=== PATIENT | female | born 1930 | race Two or more races ===

== ENCOUNTER 2017-08-23 20:55 | Inpatient (IN) | payer MEDICARE, MEDICAID ==
[~2017-08-23] VITALS: Ht 162.6 cm; Wt 75.3 kg
[2017-08-23] MEDS ORDERED: KETOROLAC 30MG/ML VIAL IV STA (21:15)
[2017-08-23 22:54] LABS: BG BASE EXCESS -7.9 mmol/L (-2.0-2.0); BG CARBOXYHEMOGLOBIN 0.3 % (0.5-1.5); BG DEOXYHEMOGLOBIN 0.4 % (0.0-5.0); BG FRACTION INSPIRED OXYGEN 100; BG HCO3 ACT 17.6 mmol/L (22.0-26.0); BG METHEMOGLOBIN 0.2 % (0.0-1.5); BG OXYHEMOGLOBIN 99.1 % (94.0-97.0); BG PH 7.306 (7.350-7.450); BG PO2 245.8 mmHg (75.0-100.0); BG SAMPLE SITE RIGHT BRACHIAL; BG TOTAL HEMOGLOBIN 13.3 g/dL (12.0-18.0); BG VENT MODE MASK - NRB
[2017-08-23 22:57] LABS: INR 1.1; PROTHROMBIN TIME 11.9 sec (9.4-11.6)
[2017-08-23 22:58] LABS: CHLORIDE 102 mEq/L (98-107)
[2017-08-23 22:59] LABS: BASOPHILS % 0.3 % (0.0-2.0); EOSINOPHILS % 0.7 % (0.0-5.0); HEMATOCRIT. 37.3 % (36.0-48.0); HEMOGLOBIN. 12.8 g/dL (12.0-16.0); LYMPHOCYTES % 39.1 % (20.0-50.0); MEAN CORPUSCULAR HEMOGLOBIN 32.8 pg (28.0-32.0); MEAN CORPUSCULAR VOLUME 95.4 fL (81.0-99.0); MEAN PLATELET VOLUME 8.4 fl (7.4-10.4); MONOCYTES % 6.9 % (2.0-8.0); PLATELET 146 x1000/uL (130-400); RED BLOOD CELL COUNT 3.91 mill/uL (4.2-5.4); RED CELL DISTRIBUTION WIDTH 15.3 % (11.6-14.6)
[2017-08-23 23:35] LABS: CLARITY URINE CLOUDY (CLEAR); COLOR URINE YELLOW (YELLOW); KETONES URINE NEGATIVE (NEGATIVE); LEUKOCYTE ESTERASE URINE NEGATIVE (NEGATIVE); NITRITE URINE NEGATIVE (NEGATIVE); OCCULT BLOOD URINE TRACE (NEGATIVE); PROTEIN URINE 1+ (NEGATIVE); SPECIFIC GRAVITY URINE 1.014 (1.005-1.030)
[2017-08-23] MEDS ORDERED: ASPIRIN 325MG EC TABLET PO ONE (23:45)
[2017-08-23] MEDS ORDERED: ENOXAPARIN 60MG/0.6ML SYR SUBCUT ONE (23:45)
[2017-08-24] MEDS ORDERED: HALOPERIDOL LACTATE 5MG/ML VIAL IM ONE
[2017-08-24] MEDS ORDERED: CLONIDINE 0.3MG TABLET PO NR (09:22)
[2017-08-24] MEDS ORDERED: CLONIDINE 0.1MG TABLET PO PRN (10:15)
[2017-08-24] MEDS ORDERED: DIPHENHYDRAMINE 50MG/ML VIAL IV PRN (10:15)
[2017-08-24] MEDS ORDERED: ONDANSETRON HCL 4MG/2ML VIAL IV PRN (10:15)
[2017-08-24] MEDS ORDERED: HYDROCODONE/ACETAMINOPHEN 5/325MG TABLET PO PRN (10:15)
[2017-08-24] MEDS ORDERED: IPRATROPIUM/ALBUTEROL 0.5-3(2.5)MG/3ML NEB INH PRN (10:15)
[2017-08-24] MEDS ORDERED: DOCUSATE SODIUM 100MG CAPSULE PO PRN (10:15)
[2017-08-24] MEDS ORDERED: NA PHOS,M-B/NA PHOS,DI-BA ENEMA 118ML PR PRN (10:15)
[2017-08-24] MEDS ORDERED: MAGNESIUM/ALUMINUM HYDROXIDE/SIMETHICONE 30ML UDC PO PRN (10:15)
[2017-08-24] MEDS ORDERED: HYDROMORPHONE HCL/PF 2MG/ML CPJ IV PRN (18:00)
[2017-08-24] MEDS: LORAZEPAM 2MG/ML CPJ IV PRN (20:32)
[2017-08-24 22:30] VITALS: BP_SYST 127; BP_SYST 97; BP_DIAS 59; BP_DIAS 75
[2017-08-25] VITALS (12 sets, daily range): BP systolic 90–190; BP diastolic 42–91
[2017-08-25] MEDS: LORAZEPAM 2MG/ML CPJ IV PRN (00:49)
[2017-08-25 07:25] LABS: BASOPHILS % 0.5 % (0.0-2.0); HEMATOCRIT. 34.3 % (36.0-48.0); HEMOGLOBIN. 11.6 g/dL (12.0-16.0); LYMPHOCYTES % 31.3 % (20.0-50.0); MEAN CORPUSCULAR HEMOGLOBIN 32.2 pg (28.0-32.0); MEAN CORPUSCULAR VOLUME 94.9 fL (81.0-99.0); MEAN PLATELET VOLUME 9.2 fl (7.4-10.4); MONOCYTES % 7.7 % (2.0-8.0); NEUTROPHILS % 59.5 % (40.0-76.0); PLATELET 126 x1000/uL (130-400); RED BLOOD CELL COUNT 3.61 mill/uL (4.2-5.4); RED CELL DISTRIBUTION WIDTH 15.2 % (11.6-14.6)
[2017-08-25] MEDS ORDERED: OMEP20CA10 MT (07:35)
[2017-08-25] MEDS ORDERED: METO25TA6 MT (07:35)
[2017-08-25] MEDS ORDERED: QUET50TA MT (07:35)
[2017-08-25] MEDS ORDERED: DOCU-138 PO (07:35)
[2017-08-25] MEDS ORDERED: LEVO25TA7 PO (07:35)
[2017-08-25] MEDS ORDERED: ASPI-1158 MT (07:35)
[2017-08-25] MEDS ORDERED: MEMA1CAP MT (07:35)
[2017-08-25 08:07] LABS: CHLORIDE 107 mEq/L (98-107)
[2017-08-25 08:14] LABS: LDL CHOLESTEROL 68 mg/dL (5-100)
[2017-08-25 08:15] LABS: HDL CHOLESTEROL 46 mg/dL (40-59)
[2017-08-25 08:16] LABS: T4 FREE 1.27 ng/dL (0.76-1.46)
[2017-08-25] MEDS: ENOXAPARIN 40MG/0.4ML SYR SUBCUT SCH (09:01)
[2017-08-25] MEDS: ASPIRIN 81MG EC TABLET PO SCH (09:01)
[2017-08-25] MEDS ORDERED: MEMANTINE HCL MT SCH (11:45)
[2017-08-25] MEDS: DOCUSATE SODIUM 250MG CAPSULE PO SCH (12:00)
[2017-08-25] MEDS: METOPROLOL TARTRATE 25MG TABLET PO SCH ×2 (12:00→21:00)
[2017-08-25] MEDS: OMEPRAZOLE 20MG CAPSULE EXTENDED RELEASE PO SCH (12:00)
[2017-08-25] MEDS: LEVOTHYROXINE SODIUM 50MCG TABLET PO SCH (12:00)
[2017-08-25] MEDS ORDERED: FUROSEMIDE 40MG/4ML VIAL IVP SCH (12:45)
[2017-08-25] MEDS: MEMANTINE HCL 10MG TABLET PO SCH (14:00)
[2017-08-25 15:44] LABS: BG BASE EXCESS -2.9 mmol/L (-2.0-2.0); BG CARBOXYHEMOGLOBIN 0.8 % (0.5-1.5); BG DEOXYHEMOGLOBIN 7.4 % (0.0-5.0); BG FRACTION INSPIRED OXYGEN 28; BG HCO3 ACT 22.3 mmol/L (22.0-26.0); BG METHEMOGLOBIN 0.1 % (0.0-1.5); BG OXYHEMOGLOBIN 91.7 % (94.0-97.0); BG PCO2 40.3 mmHg (35.0-45.0); BG PO2 64.5 mmHg (75.0-100.0); BG SAMPLE SITE RIGHT RADIAL; BG TOTAL HEMOGLOBIN 13.6 g/dL (12.0-18.0); BG VENT MODE NASAL CANNULA
[2017-08-25 17:44] LABS: BG BASE EXCESS -5.2 mmol/L (-2.0-2.0); BG CARBOXYHEMOGLOBIN 0.4 % (0.5-1.5); BG DEOXYHEMOGLOBIN 0.3 % (0.0-5.0); BG FRACTION INSPIRED OXYGEN 100; BG HCO3 ACT 19.8 mmol/L (22.0-26.0); BG METHEMOGLOBIN 0.3 % (0.0-1.5); BG OXYGEN SATURATION 99.7 % (92.0-98.5); BG PCO2 36.7 mmHg (35.0-45.0); BG PH 7.349 (7.350-7.450); BG PO2 331.6 mmHg (75.0-100.0); BG SAMPLE SITE RIGHT RADIAL; BG TOTAL HEMOGLOBIN 13.1 g/dL (12.0-18.0); BG VENT MODE MASK - NRB
[2017-08-25] MEDS: PIPERACILLIN/TAZ 3.375G PREMIX 50 ML IV SCH (18:39)
[2017-08-25] MEDS: QUETIAPINE FUMARATE 50MG TABLET PO SCH (21:00)
[2017-08-26] VITALS (12 sets, daily range): BP systolic 96–144; BP diastolic 41–85
[2017-08-26] MEDS: PIPERACILLIN/TAZ 3.375G PREMIX 50 ML IV SCH (01:14)
[2017-08-26 06:45] LABS: BASOPHILS % 0.1 % (0.0-2.0); HEMATOCRIT. 34.4 % (36.0-48.0); HEMOGLOBIN. 11.5 g/dL (12.0-16.0); LYMPHOCYTES % 10.5 % (20.0-50.0); MEAN CORPUSCULAR HEMOGLOBIN 32.1 pg (28.0-32.0); MEAN CORPUSCULAR VOLUME 95.9 fL (81.0-99.0); MEAN PLATELET VOLUME 9.5 fl (7.4-10.4); MONOCYTES % 4.7 % (2.0-8.0); NEUTROPHILS % 84.7 % (40.0-76.0); PLATELET 109 x1000/uL (130-400); RED BLOOD CELL COUNT 3.59 mill/uL (4.2-5.4); RED CELL DISTRIBUTION WIDTH 15.4 % (11.6-14.6)
[2017-08-26] MEDS: ENOXAPARIN 40MG/0.4ML SYR SUBCUT SCH (08:43)
[2017-08-26] MEDS: DOCUSATE SODIUM 250MG CAPSULE PO SCH (08:44)
[2017-08-26] MEDS: LEVOTHYROXINE SODIUM 50MCG TABLET PO SCH (08:44)
[2017-08-26] MEDS: MEMANTINE HCL 10MG TABLET PO SCH (08:44)
[2017-08-26] MEDS: OMEPRAZOLE 20MG CAPSULE EXTENDED RELEASE PO SCH (08:44)
[2017-08-26] MEDS: ASPIRIN 81MG EC TABLET PO SCH (08:45)
[2017-08-26] MEDS: METOPROLOL TARTRATE 25MG TABLET PO SCH ×2 (08:45→20:47)
[2017-08-26] MEDS: PIPERACILLIN/TAZOBACTAM 2.25 G in DEXTROSE 5% WATER 50 ML IV SCH ×2 (09:28→17:29)
[2017-08-26 09:31] LABS: BG BASE EXCESS -3.9 mmol/L (-2.0-2.0); BG CARBOXYHEMOGLOBIN 0.5 % (0.5-1.5); BG DEOXYHEMOGLOBIN 4.6 % (0.0-5.0); BG FRACTION INSPIRED OXYGEN 28; BG HCO3 ACT 20.1 mmol/L (22.0-26.0); BG METHEMOGLOBIN 0.2 % (0.0-1.5); BG OXYGEN SATURATION 95.4 % (92.0-98.5); BG OXYHEMOGLOBIN 94.7 % (94.0-97.0); BG PCO2 33.2 mmHg (35.0-45.0); BG PH 7.399 (7.350-7.450); BG PO2 74.8 mmHg (75.0-100.0); BG SAMPLE SITE RIGHT RADIAL; BG TOTAL HEMOGLOBIN 12.3 g/dL (12.0-18.0); BG VENT MODE NASAL CANNULA
[2017-08-26] MEDS: GUAIFENESIN 200MG/10ML SUGAR FREE UDC PO PRN (09:47)
[2017-08-26] MEDS: ACETAMINOPHEN 325MG TABLET PO PRN ×2 (09:47→20:47)
[2017-08-26] MEDS ORDERED: PIPERACILLIN/TAZOBACTAM 2.25 G in DEXTROSE 5% WATER 50 ML IV SCH (10:00)
[2017-08-26] MEDS: QUETIAPINE FUMARATE 50MG TABLET PO SCH (20:47)
[2017-08-27] VITALS (12 sets, daily range): BP systolic 91–160; BP diastolic 39–78
[2017-08-27] MEDS: PIPERACILLIN/TAZOBACTAM 2.25 G in DEXTROSE 5% WATER 50 ML IV SCH ×4 (01:35→23:04)
[2017-08-27 06:39] LABS: BASOPHILS % 0.5 % (0.0-2.0); EOSINOPHILS % 3.1 % (0.0-5.0); HEMATOCRIT. 33.9 % (36.0-48.0); HEMOGLOBIN. 11.4 g/dL (12.0-16.0); LYMPHOCYTES % 24.4 % (20.0-50.0); MEAN CORPUSCULAR HEMOGLOBIN 32.6 pg (28.0-32.0); MEAN CORPUSCULAR VOLUME 97.2 fL (81.0-99.0); MEAN PLATELET VOLUME 9.4 fl (7.4-10.4); MONOCYTES % 7.4 % (2.0-8.0); NEUTROPHILS % 64.6 % (40.0-76.0); PLATELET 98 x1000/uL (130-400); RED BLOOD CELL COUNT 3.49 mill/uL (4.2-5.4); RED CELL DISTRIBUTION WIDTH 15.6 % (11.6-14.6)
[2017-08-27] MEDS: LEVOTHYROXINE SODIUM 50MCG TABLET PO SCH (06:54)
[2017-08-27] MEDS: OMEPRAZOLE 20MG CAPSULE EXTENDED RELEASE PO SCH (06:54)
[2017-08-27] MEDS: DOCUSATE SODIUM 250MG CAPSULE PO SCH (09:05)
[2017-08-27] MEDS: ENOXAPARIN 30MG/0.3ML SYR SUBCUT SCH (09:05)
[2017-08-27] MEDS: METOPROLOL TARTRATE 25MG TABLET PO SCH ×2 (09:05→20:41)
[2017-08-27] MEDS: ASPIRIN 81MG EC TABLET PO SCH (09:05)
[2017-08-27] MEDS: ACETAMINOPHEN 325MG TABLET PO PRN (09:06)
[2017-08-27] MEDS: QUETIAPINE FUMARATE 50MG TABLET PO SCH (20:38)
[2017-08-27] MEDS: LORAZEPAM 2MG/ML CPJ IV PRN (20:39)
[2017-08-28] VITALS (10 sets, daily range): BP systolic 94–160; BP diastolic 40–90
[2017-08-28] MEDS: PIPERACILLIN/TAZOBACTAM 2.25 G in DEXTROSE 5% WATER 50 ML IV SCH ×3 (04:31→17:11)
[2017-08-28] MEDS: LORAZEPAM 2MG/ML CPJ IV PRN (05:54)
[2017-08-28] MEDS: LEVOTHYROXINE SODIUM 50MCG TABLET PO SCH (05:58)
[2017-08-28] MEDS: OMEPRAZOLE 20MG CAPSULE EXTENDED RELEASE PO SCH (05:58)
[2017-08-28] MEDS: GUAIFENESIN 200MG/10ML SUGAR FREE UDC PO PRN (06:41)
[2017-08-28] MEDS: METOPROLOL TARTRATE 25MG TABLET PO SCH ×2 (09:00→20:43)
[2017-08-28] MEDS: ASPIRIN 81MG EC TABLET PO SCH (09:28)
[2017-08-28] MEDS: ENOXAPARIN 30MG/0.3ML SYR SUBCUT SCH (09:40)
[2017-08-28] MEDS ORDERED: QUETIAPINE FUMARATE 25MG TABLET PO SCH (21:00)
[2017-08-29] MEDS: PIPERACILLIN/TAZOBACTAM 2.25 G in DEXTROSE 5% WATER 50 ML IV SCH ×2 (00:21→07:09)
[2017-08-29 02:00] VITALS: BP 158/43
[2017-08-29 04:00] VITALS: BP 144/80
[2017-08-29] MEDS: LORAZEPAM 2MG/ML CPJ IV PRN (04:35)
[2017-08-29 06:00] VITALS: BP 167/90
[2017-08-29 08:00] VITALS: BP 151/75
[2017-08-29] MEDS: LEVOTHYROXINE SODIUM 50MCG TABLET PO SCH (08:45)
[2017-08-29] MEDS: ASPIRIN 81MG EC TABLET PO SCH (08:45)
[2017-08-29] MEDS: METOPROLOL TARTRATE 25MG TABLET PO SCH (08:45)
[2017-08-29] MEDS: OMEPRAZOLE 20MG CAPSULE EXTENDED RELEASE PO SCH (08:45)
[2017-08-29] MEDS: ENOXAPARIN 30MG/0.3ML SYR SUBCUT SCH (08:46)
[2017-08-29] MEDS: DOCUSATE SODIUM 250MG CAPSULE PO SCH (08:48)
[2017-08-29 09:11] LABS: BASOPHILS % 0.7 % (0.0-2.0); HEMATOCRIT. 33.6 % (36.0-48.0); HEMOGLOBIN. 11.4 g/dL (12.0-16.0); LYMPHOCYTES % 29.2 % (20.0-50.0); MEAN CORPUSCULAR HEMOGLOBIN 32.6 pg (28.0-32.0); MEAN CORPUSCULAR VOLUME 96.1 fL (81.0-99.0); MEAN PLATELET VOLUME 8.6 fl (7.4-10.4); MONOCYTES % 8.5 % (2.0-8.0); NEUTROPHILS % 57.6 % (40.0-76.0); PLATELET 131 x1000/uL (130-400); RED CELL DISTRIBUTION WIDTH 15.2 % (11.6-14.6)
[2017-08-29 09:39] VITALS: BP 150/95
[2017-08-29 10:15] VITALS: BP 136/56
== END 2017-08-29 11:11 | disposition home or self-care (01) | DRG 871 ==
LOC: ER 20:55 → EDBEDREQSVC 23:49 → EDBEDREQ 23:49 → EDBEDREQTM 23:49 → ENRESERV 08-24 21:01 → 5EST 08-24 22:54
PROVIDERS: ADMIT Internal Medicine; ATTEND Internal Medicine
DX: A41.9 Sepsis, unspecified organism (principal); J69.0 Pneumonitis due to inhalation of food and vomit; I21.4 Non-ST elevation (NSTEMI) myocardial infarction; J96.01 Acute respiratory failure with hypoxia; N17.0 Acute kidney failure with tubular necrosis; E46 Unspecified protein-calorie malnutrition; I50.32 Chronic diastolic (congestive) heart failure; E86.0 Dehydration; J42 Unspecified chronic bronchitis; E03.9 Hypothyroidism, unspecified; I45.10 Unspecified right bundle-branch block; E78.5 Hyperlipidemia, unspecified; F06.30 Mood disorder due to known physiological condition, unspecified; F32.9 Major depressive disorder, single episode, unspecified; H40.9 Unspecified glaucoma; H54.7 Unspecified visual loss; I11.0 Hypertensive heart disease with heart failure; K59.00 Constipation, unspecified; M17.0 Bilateral primary osteoarthritis of knee; R13.10 Dysphagia, unspecified; Z79.82 Long term (current) use of aspirin; Z79.899 Other long term (current) drug therapy; Z82.49 Family history of ischemic heart disease and other diseases of the circulatory system; Z90.49 Acquired absence of other specified parts of digestive tract; Z98.51 Tubal ligation status; Z68.28 Body mass index [BMI] 28.0-28.9, adult
CPT/HCPCS: 36415; 36600; 71045; 74176; 80048; 80053; 80061; 81003; 82375; 82805; 83690; 83735; 83880; 84439; 84443; 84484; 85025; 85610; 93005; 93306; 94640; 96361; 96374; 99285; J1170; J1630; J1650; J1885; J1940; J2060; J2543; J7040; J7050; J7060; J7620